=== PATIENT | male | born 1995 | race American Indian/Alaskan Native ===

== ENCOUNTER 2016-10-25 23:28 | Emergency (ER) | payer OTHER ==
[2016-10-26] MEDS ORDERED: FLEXERIL PO ONE (02:00)
[2016-10-26] MEDS ORDERED: TORADOL IM ONE (02:00)
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
[2016-10-26 05:31] VITALS: BP 129/81
== END 2016-10-26 02:55 | disposition home or self-care (01) ==
LOC: ED 23:28
DX: M54.2 Cervicalgia (principal); M54.9 Dorsalgia, unspecified; V49.59XA Passenger injured in collision with other motor vehicles in traffic accident, initial encounter; Y93.9 Activity, unspecified; Y99.9 Unspecified external cause status; Y92.9 Unspecified place or not applicable
CPT/HCPCS: 96372; 99282; J1885